=== PATIENT | female | born 1960 | race Caucasian/White ===

== ENCOUNTER 2024-04-05 10:00 | Outpatient (CLI) | payer BC, SELFPAY ==
--- NOTE | ~2024-04-05 | MR_ITS ---
EXAMINATION: MR shoulder LT wo con DATE: 04/05/2024 10:32 INDICATION: Chronic left shoulder pain. TECHNIQUE: Magnetic resonance imaging (MRI) of the left shoulder was performed without intravenous co ntrast. Sequences included axial PD-weighted FS FSE, coronal oblique PD-weighted FS FSE and T2-weight ed FS FSE, and sagittal oblique T2-weighted FS FSE and T1-weighted FSE. COMPARISON: None. FINDINGS: Coracoacromial arch: The acromion undersurface is curved in morphology (type II). There is severe acromioclavicular joint osteoarthritis including inferiorly directed osteophytes. There is moderate subacromial/subdeltoid bu rsitis. Rotator cuff: There is moderate supraspinatus and infraspinatus tendinopathy. Teres minor tendon is normal. Subscap ularis tendon is normal. There is no asymmetric fatty atrophy of the rotator cuff muscle bellies. Biceps tendon and glenoid labrum: Biceps tendon is in bicipital groove. There is a partial tear of intra-articular biceps tendon. There is a tear of superior and posterior glenoid labrum from 1:00 to 8:00 (SLAP tear). Fluid: There is a small glenohumeral joint effusion. Bones/cartilage: There is deep partial-thickness cartilage loss of humeral head involving the central articular surfac e. There is cartilage surface irregularity of glenoid. Osteophytes are noted. IMPRESSION: 1. Moderate rotator cuff tendinopathy. No tear. 2. Moderate glenohumeral joint chondrosis. 3. Severe acromioclavicular joint osteoarthritis. 4. Partial tear of biceps tendon. 5. Small glenohumeral joint effusion. 6. Moderate subacromial/subdeltoid bursitis. Reviewed, dictated and finalized at location A. E OPERATOR
== END 2024-04-05 10:01 | disposition home or self-care (01) ==
LOC: MICIMG 10:03
PROVIDERS: PCP Family Medicine; Visit Provider Orthopaedic Surgery
DX: M75.102 Unspecified rotator cuff tear or rupture of left shoulder, not specified as traumatic (principal); M94.212 Chondromalacia, left shoulder; M19.012 Primary osteoarthritis, left shoulder; S46.212A Strain of muscle, fascia and tendon of other parts of biceps, left arm, initial encounter; X58.XXXA Exposure to other specified factors, initial encounter; M25.412 Effusion, left shoulder; M75.52 Bursitis of left shoulder
CPT/HCPCS: 73221